=== PATIENT | female | born 1965 | race Caucasian/White ===

== ENCOUNTER 2020-04-12 14:15 | Emergency (ER) | payer SELFPAY ==
--- NOTE | 2020-04-12 16:30 | ER ---
Nurse's Notes [facility] Name: Leona Carolina Age: 54 yrs Sex: Female : 1965 Arrival Date: 04/12/2020 Time: 14:18 Bed Waiting Private MD: Diagnosis: Presentation: 04/12 14:50 Chief complaint: Patient states: Log fell on the R foot on Saturday. Reports pain, bruise ca1 and swelling on R foot. Pain more with ambulation. Coronavirus screen: Client denies travel out of the [place] in the last 14 days. At this time, the client does not indicate any symptoms associated with coronavirus-19. Ebola Screen: Patient negative for fever greater than or equal to 101.5 degrees Fahrenheit, and additional compatible Ebola Virus Disease symptoms Patient denies exposure to infectious person. Patient denies travel to an Ebola-affected area in the 21 days before illness onset. No symptoms or risks identified at this time. Initial Sepsis Screen: Does the patient meet any 2 criteria? No. Patient's initial sepsis screen is negative. Does the patient have a suspected source of infection? No. Patient's initial sepsis screen is negative. Risk Assessment: Do you want to hurt yourself or someone else? Patient reports no desire to harm self or others. Onset of symptoms was April 12, 2020. 14:50 Method Of Arrival: Ambulatory ca1 14:50 Acuity: THAO 4 ca1 Historical: - Allergies: 14:53 No Known Allergies; ca1 - PMHx: 14:53 Hypertension; ca1 - PSHx: 14:53 Hysterectomy; ; ca1 - Immunization history:: Flu vaccine is not up to date. - Social history:: Smoking status: Patient denies any tobacco usage or history of. Assessment: 16:28 Reassessment: Mary from Registration states, "they left and then seconds after Xray ca1 came to call them but they left already". Vital Signs: 14:50 BP 170 / 90; Pulse 76; Resp 16 S; Temp 97.6(TE); Pulse Ox 96% on R/A; Weight 86.18 kg ca1 (R); Height 5 ft. 1 in. (154.94 cm) (R); Pain 2/10; 14:50 Body Mass Index 35.90 (86.18 kg, 154.94 cm) ca1 ED Course: 14:18 Patient arrived in ED. ds1 14:52 Triage completed. ca1 14:53 Arm band placed on right wrist. ca1 16:29 Patient's name was called from ER lobby. No response. Unable to locate patient. Will ca1 disposition as left without being seen by a provider. Administered Medications: No medications were administered Outcome: 16:29 Patient left the ED. ca1 Signatures: Mary Baxter ds1 Tori Gallo RN RN ca1
[2020-04-12 16:34] VITALS: BP 170/90; TEMP 97.6; O2SAT 96
== END 2020-04-12 16:29 | disposition left against medical advice (07) ==
LOC: ER 14:15
DX: Z02.9 Encounter for administrative examinations, unspecified (principal)
CPT/HCPCS: 99281